=== PATIENT | female | born 1965 | race Caucasian/White ===

== ENCOUNTER 2018-11-08 13:31 | Emergency (ER) | payer SELFPAY ==
[~2018-11-08] VITALS: Ht 157.5 cm; Wt 68.2 kg
[2018-11-08 13:49] VITALS: Ht 157.5 cm; Wt 68.2 kg
[2018-11-08] MEDS ORDERED: TRAZODONE HCL150 MG PO (13:52)
[2018-11-08] MEDS ORDERED: ASPIRIN81 MG PO (13:52)
[2018-11-08] MEDS ORDERED: LIPITOR40 MG PO (13:53)
[2018-11-08] MEDS ORDERED: KLONOPIN1 MG PO (13:53)
[2018-11-08] MEDS ORDERED: LEXAPRO10 MG PO (13:53)
[2018-11-08] MEDS ORDERED: NEURONTIN 300300 MG PO (13:54)
[2018-11-08] MEDS ORDERED: OMEPRAZOLE20 M1 PO (13:54)
[2018-11-08] MEDS ORDERED: COREG 3.1253.125 MG PO (13:55)
[2018-11-08] MEDS ORDERED: LISINOPRIL2.5 MG PO (13:55)
[2018-11-08] MEDS ORDERED: BLACK COHOSH160 MG PO (13:55)
[2018-11-08] MEDS ORDERED: ALBUTEROL SULF8.5 GM INH (13:56)
[2018-11-08] MEDS ORDERED: SPIRIVA18 MCG INH (13:56)
[2018-11-08 14:25] LABS: BASOPHILS 0.4 % (0-2); EOSINOPHILS 4.9 % (0-7); HEMATOCRIT 39.5 % (36.0-48.0); HEMOGLOBIN 13.8 g/dL (12-16); IMMATURE GRANULOCYTES 0.1 % (0-5); LYMPHOCYTES 26.6 % (15-50); MCH 32.4 pg (26.0-34.0); MCHC 34.9 g/dL (31.0-37.0); MCV 92.7 fL (80.0-100.0); MEAN PLATELET VOLUME 9.8 fL (7.4-10.4); MONOCYTES 5.2 % (2-11); NEUTROPHILS 62.8 % (40-80); PLATELET COUNT 177 10x3/uL (130-400); RBC 4.26 10x6/uL (4.00-5.40); RDW 13.9 % (11.5-14.5); WBC 8.2 10x3/uL (4.8-10.8)
[2018-11-08 14:38] LABS: ALBUMIN 2.9 g/dL (3.4-5.0); ALKALINE PHOSPHATASE 108 U/L (46-116); ALT (SGPT) 34 U/L (10-68); BILIRUBIN - TOTAL 0.22 mg/dL (0.2-1.3); CALC OSMOLALITY 281 mosm/kg (275-300); CALCIUM 8.9 mg/dL (8.5-10.1); CARBON DIOXIDE 29.9 mmol/L (21.0-32.0); CHLORIDE - SERUM 105 mmol/L (98-107); CREATININE - SERUM 0.8 mg/dL (0.6-1.3); GLUCOSE 100 mg/dL (74-106); POTASSIUM - SERUM 4.5 mmol/L (3.5-5.1); PROTEIN - SERUM 6.1 g/dL (6.4-8.2); SODIUM 142 mmol/L (136-145); UREA NITROGEN 9 mg/dL (7-18); eGFR NON AFRICAN AMERICAN 79 mL/min (90-120)
[2018-11-08 14:42] LABS: APPEARANCE CLOUDY (CLEAR); BACTERIA MANY /hpf (NONE SEEN); BILIRUBIN NEGATIVE (NEGATIVE); COLOR YELLOW (YELLOW); GLUCOSE NEGATIVE (NEGATIVE); KETONE NEGATIVE (NEGATIVE); MUCUS >1+ /lpf (NONE SEEN); NITRITE NEGATIVE (NEGATIVE); PROTEIN NEGATIVE (NEGATIVE); SPECIFIC GRAVITY 1.015 (1.005-1.020); UROBILINOGEN NORMAL (NORMAL)
[2018-11-08 14:43] LABS: AMORPHOUS SEDIMENT >1+ /lpf (NONE SEEN)
[2018-11-08] MEDS ORDERED: MACROBID100 MG PO (17:55)
[2018-11-08] MEDS ORDERED: KEFLEX500 MG PO (17:55)
[2018-11-08] MEDS ORDERED: PHENAZOPYRIDIN200 MG PO (17:57)
[2018-11-08 18:08] VITALS: BP 125/73
== END 2018-11-08 18:09 | disposition home or self-care (01) ==
LOC: D.ER 13:31
PROVIDERS: Family Medicine
DX: N39.0 Urinary tract infection, site not specified (principal); H44.9 Unspecified disorder of globe; I10 Essential (primary) hypertension; K21.9 Gastro-esophageal reflux disease without esophagitis; F17.200 Nicotine dependence, unspecified, uncomplicated